=== PATIENT | female | born 1955 | race Caucasian/White ===

== ENCOUNTER → 2017-01-26 | Outpatient (CLI) | payer OTHER ==
[~2017-01-26] MED LIST: ALLEGRA ALLERG180 MG PO; AMLODIPINE BESY10 MG PO; ATORVASTATIN CA40 MG PO; BENTYL20 M1 PO; CHLORTHALIDONE25 MG; CIPRO PO; FLONASE 0.05% N16 G1; FLOVENT DISKUS50 MCG; LOMOTIL TABLET1 TAB PO; LORTAB 7.5-5001 TAB PO; PANTOPRAZOLE SO40 MG PO; PHENERGAN25 M1 PO; PREVACID PO; PRINIVIL40 MG PO; SERTRALINE HCL100 MG PO; ZOLOFT100 MG PO; ZYRTEC10 M1 PO
--- NOTE | ~2017-01-26 | TH ---
Unit #: [id number] #: [id number] Patient: CRIS CORONEL [id number] [address] [address] [id number] O MR#: [id number] NAME: CRIS CORONEL. : 1955 SEX: F STUDY DATE/TIME: 01/26/2017 UNIT: [facility] ROOM: STUDY DESCRIPTION: Cardiolite stress Attending Physician: Demar Simmons M.D. Referring Physician: Demar Simmons M.D. Primary Care Physician: Lori Bang M.D. CARDIOLOGY REPORT EXAM Nuclear stress test. INDICATIONS Chest discomfort. SUMMARY Patient underwent nuclear stress test and received a resting dose of 9.84 mCi and a stress dose of 30.5 mCi. On gated imaging, patient appears to have normal wall motion with a preserved ejection fraction. Patient's LV EF is 80%. On perfusion imaging, comparing rest and stress images, there appears to be no reversible perfusion defects. CONCLUSIONS 1. No obvious ischemia. 2. Preserved ejection fraction. 3. ECG portion dictated separately. Dictated by... Demar Simmons M.D. UT/myke TD: 01/27/2017 06:55 JOB #: [id number] CARDIOLOGY REPORT Page 1 of 1 X DEMAR SIMMONS MD CARDIOLOGY REPORT
--- NOTE | ~2017-01-26 | ST ---
Unit #: [id number] #: [id number] Patient: CRIS CORONEL [id number] [address] [address] [id number] O MR#: [id number] NAME: CRIS CORONEL. : 1955 SEX: F STUDY DATE/TIME: UNIT: [facility] ROOM: STUDY DESCRIPTION: Stress Test Attending Physician: Demar Simmons M.D. Referring Physician: Demar Simmons M.D. Primary Care Physician: Lori Bang M.D. CARDIOLOGY REPORT EXAM Stress Test INDICATION Chest discomfort. SUMMARY The patient underwent Cardiolite stress test. The patient exercised on Dat protocol 4 minutes 47 seconds achieving a workload METs of 5.1. The patient's resting heart rate is 68 beats/minute which increased to 139 beats/minute representing 88% of the maximum age-predicted heart rate. The patient's resting blood pressure is 136/71 mmHg which increased to 180/82 mmHg with exercise. The patient's resting ECG showed normal sinus rhythm with normal ST segments. The patient's stress ECG showed sinus tachycardia with preserved ST segments. There is no ventricular or supraventricular ectopy noted. There are no pauses noted. CONCLUSION 1. Negative ECG portion of the Cardiolite study for ischemia. 2. Poor exercise tolerance. 3. Normal blood pressure and heart rate response to exercise. 4. Perfusion imaging details dictated separately. Dictated by... Demar Simmons M.D. SD/df TD: 01/27/2017 05:35 JOB #: [id number] Unit #: [id number] #: [id number] Patient: CRIS CORONEL CARDIOLOGY REPORT Page 1 of 1 X DEMAR SIMMONS MD CARDIOLOGY REPORT
== END | disposition home or self-care (01) ==
LOC: CNUC 12-29 09:00
DX: E78.5 Hyperlipidemia, unspecified (principal); I10 Essential (primary) hypertension; I36.1 Nonrheumatic tricuspid (valve) insufficiency; R06.02 Shortness of breath; Z87.891 Personal history of nicotine dependence
CPT/HCPCS: 78452; 93017; 93306; A9500

== ENCOUNTER → 2017-03-10 | Day surgery (SDC) | payer OTHER ==
--- NOTE | ~2017-03-10 | OR ---
Unit #: [id number] #: [id number] Patient: CRIS CORONEL [id number] [address] [address] [id number] O MR#: [id number] NAME: CRIS CORONEL. ROOM: Date of Procedure: 03/10/2017 Admission Date: 03/10/2017 Surgeon: Hubert Walker M.D. : 1955 Attending Physician: Hubert Walker M.D. Primary Care Physician: Lori Bang M.D. OPERATIVE REPORT PRIMARY CARE PHYSICIAN Lori aBng M.D. PREOPERATIVE DIAGNOSES The patient has presented with history of diarrhea for the past several months. In addition, she has lost some weight. In addition, she also complains of intermittent hematochezia and itching and burning in the anus area. PROCEDURES PERFORMED 1. Colonoscopy with polypectomy. 2. Colonoscopy with biopsies. 3. Internal hemorrhoidal band ligation. POSTOPERATIVE DIAGNOSES 1. The patient had moderate sigmoid and descending colon diverticulosis. 2. There were medium-sized internal hemorrhoids, two of these were treated using rubber band ligation. 3. Multiple polyps were present throughout the entire colon. There were four polyps in the hepatic flexure, one in the cecum, two in the transverse colon, two in the sigmoid colon, and one in the rectum. The largest polyp was in the sigmoid colon about 3 cm in size. The remaining polyps varied between 5 mm to 1.2 cm. All the polyps were removed after snare cautery polypectomy and were retrieved and sent for histology. In addition, multiple random colonic biopsies were obtained from throughout the colon to rule out microscopic or collagenous colitis. RECOMMENDATIONS The patient is being started on p.r.n. Lomotil. She will be followed up in the office in 8 to 10 weeks' time. SEDATION USED MAC. DESCRIPTION OF PROCEDURE Following detailed explanation of the potential risks and complications of a colonoscopy, namely perforation, bleeding, and complications related to sedation, the patient was brought to GI lab and laid in the left lateral decubitus position. A digital rectal examination was performed. The latter revealed presence of external hemorrhoids and perianal skin tags. A rectal examination was performed. The latter did not reveal presence of any masses in the rectum. Lubricated tip of the Olympus video colonoscope Unit #: [id number] #: [id number] Patient: CRIS CORONEL was inserted through the anus and advanced under direct vision. The scope was advanced past rectosigmoid into descending colon. Multiple medium-sized diverticula were noted in this area. In addition, a large sessile polyp was noted in the sigmoid colon. The scope tip was then navigated all the way up to cecum with visualization of the ileocecal valve and the appendiceal orifice. Preparation was excellent with good visualization and photodocumentation was obtained. Last few inches of the terminal ileum were also visualized after intubation of the ileocecal valve and appeared normal. Successive segments of the colonic mucosa were examined upon withdrawal. Multiple polyps were seen along the way. The first polyp was in the cecum and there were four additional polyps in the hepatic flexure. These ranged in size from 5 mm to 1.2 cm. There were two polyps in the transverse colon and then two polyps in the sigmoid colon. The largest polyp in the sigmoid colon was about 3 cm in size. It was removed using snare cautery polypectomy. The polyp in the rectum was also removed using snare polypectomy. It was about 6 mm in size. Other than the diverticulosis, the patient was also noted to have medium-sized internal hemorrhoids. Two of these were at the anal verge. Multiple random colonic biopsies were obtained from throughout the colon to rule out microscopic or collagenous colitis. The scope was then withdrawn. A rapid shooter band ligator assembly was mounted on the scope tip and the patient was reintubated in the retroflexed position. Two of the internal hemorrhoids were treated using rubber band ligation. Excellent hemostasis was achieved and photodocumentation was obtained. The scope was then withdrawn and the patient returned to the recovery area. She tolerated the procedure without any postprocedure complications. Dictated by... Mayra Givens TD: 03/10/2017 10:41 JOB #: [id number] OPERATIVE REPORT Page 1 of 1 X Hubert Walker MD X PROCEDURE OPERATIVE NOTE
== END | disposition home or self-care (01) ==
LOC: COPS 07:06
DX: D12.0 Benign neoplasm of cecum (principal); D12.3 Benign neoplasm of transverse colon; D12.5 Benign neoplasm of sigmoid colon; K62.1 Rectal polyp; K64.8 Other hemorrhoids; K57.30 Diverticulosis of large intestine without perforation or abscess without bleeding; I10 Essential (primary) hypertension; K21.9 Gastro-esophageal reflux disease without esophagitis; Z88.0 Allergy status to penicillin; Z88.2 Allergy status to sulfonamides; Z88.5 Allergy status to narcotic agent; Z79.899 Other long term (current) drug therapy; Z90.49 Acquired absence of other specified parts of digestive tract; Z90.710 Acquired absence of both cervix and uterus; Z98.890 Other specified postprocedural states
CPT/HCPCS: 88305; J3010